=== PATIENT | female | born 1960 | race Caucasian/White ===

== ENCOUNTER → 2023-09-13 | Outpatient (CLI) | payer BC | LOC: M RAD 11:36 | PROVIDERS: ATTEND Physical Therapist | DX: K82.9 Disease of gallbladder, unspecified (principal) | CPT/HCPCS: 78227; A9537 ==

== ENCOUNTER → 2025-04-24 | Outpatient (REF) | payer MEDICARE | LOC: M SFHCDERM 13:25 | PROVIDERS: ATTEND Physician Assistant | DX: C44.311 Basal cell carcinoma of skin of nose (principal) ==